=== PATIENT | female | born 1970 | race Caucasian/White ===

== ENCOUNTER 2017-01-05 18:25 | Emergency (ER) | payer BC ==
[2017-01-05 18:41] VITALS: BP 139/95; TEMP 98.4
[2017-01-05] MEDS ORDERED: DIPH,PERTUS(ACELL)TETVAC-LF 0.5 ML VIAL IM ONE (19:00)
--- NOTE | 2017-01-05 19:30 | CT ---
EXAMINATION TYPE: CT facial bones wo con DATE OF EXAM: 01/05/2017 COMPARISON: NONE HISTORY: Injury to chin with laceration. CT DLP: 828.00 mGycm Automated exposure control for dose reduction was used. TECHNIQUE: CT scan of the sinuses is performed without contrast, axial images are obtained, coronal r eformatted images are also reviewed. FINDINGS: The paranasal sinuses including the frontal, ethmoid, sphenoid, and maxillary sinuses bila terally are well-aerated without abnormal opacification. The ostiomeatal complex is patent bilateral ly on the coronal images. Visualized portion of mastoid air cells show minimal mucosal change in the maxillary sinuses, virgil bullosa is present on the right. The globes are intact bilaterally. Soft tissue swelling noted at t he level of the patient's symptomatology. No underlying fracture. No radiopaque foreign body. IMPRESSION: The sinuses are clear and the ostiomeatal complex is patent bilaterally. No fracture or d islocation.
--- NOTE | 2017-01-05 20:06 | ED ---
Head Injury HPI - General Chief complaint: Head Injury Stated complaint: FACIAL INJURY Time Seen by Provider: 01/05/17 18:52 Source: patient Mode of arrival: ambulatory Limitations: no limitations - History of Present Illness Initial comments: Patient is a 46-year-old female presenting to the emergency department with complaints of laceration to her chin. Onset of injury approximately one hour prior to arrival. Patient states that she was walking a dog when the dog took off and pulled her causing her to hit her face on the back of a pickup truck. Patient states that she chipped her front tooth, had a nosebleed, and suffered a laceration to her chin. Patient denies loss of consciousness. Patient denies recent illness, chills, fevers, nausea, vomiting , shortness of breath, chest pain, or abdominal pain. Patient denies numbness or tingling. Patient is not up-to-date on her tetanus immunization. Patient currently rates pain to her chin 2 out of 10. Patient denies. Patient denies any other sites of pain. MD Complaint: head injury Onset/Timin -: hour(s) - Related Data Home Medications Medication Instructions Recorded Confirmed Hydrochlorothiazide [Hydrodiuril] 12.5 mg PO DAILY 01/05/17 01/05/17 Losartan Potassium 100 mg PO 01/05/17 Ranitidine HCl 150 mg PO HS 01/05/17 01/05/17 Previous Rx's Medication Instructions Recorded Cephalexin [Keflex] 500 mg PO Q6HR #28 cap 01/05/17 Allergies/Adverse reactions: Allergies Allergy/AdvReac Type Severity Reaction Status Date / Time Sulfa (Sulfonamide Allergy Rash/Hives Verified 01/05/17 18:41 Antibiotics) Review of Systems ROS Statement: Those systems with pertinent positive or pertinent negative responses have been documented in the HPI. ROS Other: All systems not noted in ROS Statement are negative. Past Medical History Past Medical History: Hypertension History of Any Multi-Drug Resistant Organisms: MRSA Date of last positivie culture/infection: abdomen MDRO Source:: 2013 Past Surgical History: Orthopedic Surgery Additional Past Surgical History / Comment(s): bilateral leg, right elbow Past Psychological History: No Psychological Hx Reported Smoking Status: Never smoker Past Alcohol Use History: Occasional Past Drug Use History: None Reported General Exam Limitations: no limitations General appearance: alert, in no apparent distress Head exam: Present: atraumatic, normocephalic, normal inspection Expanded Head exam: Present: laceration (3 cm laceration to chin). Absent: raccoon eyes , ivy's sign, general tenderness, CSF rhinorrhea, CSF otorrhea Eye exam: Present: normal appearance, PERRL. Absent: scleral icterus, conjunctival injection, periorbital swelling, periorbital tenderness ENT exam: Present: normal oropharynx, mucous membranes moist, TM's normal bilaterally, normal external ear exam Expanded Teeth exam: Present: fractured tooth # (7. Patient has small chip missing from her tooth) Throat exam: normal inspection. negative: tonsillar erythema, tonsillomegaly, tonsillar exudate, R peritonsillar mass, L peritonsillar mass Neck exam: Present: normal inspection, full ROM. Absent: tenderness, lymphadenopathy Respiratory exam: Present: normal lung sounds bilaterally. Absent: respiratory distress, wheezes, rales, rhonchi, stridor Cardiovascular Exam: Present: tachycardia, normal heart sounds. Absent: systolic murmur GI/Abdominal exam: Present: soft, normal bowel sounds. Absent: distended, tenderness Extremities exam: Present: normal inspection, full ROM, normal capillary refill. Absent: tenderness Back exam: Present: normal inspection, full ROM. Absent: tenderness, rash noted Neurological exam: Present: alert, oriented X3, CN II-XII intact, normal gait, motor sensory deficit, reflexes normal Psychiatric exam: Present: normal affect, normal mood Skin exam: Present: warm, dry, normal color Expanded Type of lesion: Present: laceration (3 mm laceration to chin) Course Vital Signs 01/05/17 01/05/17 18:37 20:31 Temperature 98.4 F Pulse Rate 114 H 80 Respiratory 18 20 Rate Blood Pressure 139/95 O2 Sat by Pulse 100 Oximetry Procedures - Laceration Laceration #1 Consent Obtained: verbal consent Indication: laceration Site: other (chin) Size (cm): 3 Description: irregular Depth: simple, single layer Anesthetic Used: lidocaine 1% Anesthesia Technique: local infiltration Amount (mls): 2 Pre-repair: wound explored, irrigated extensively, deep structures intact Type of Sutures: nylon Size of Sutures: 6-0 Number of Sutures: 5 Technique: simple, interrupted Medical Decision Making - Medical Decision Making Laceration to chin. Nose contusion without evidence of fracture. Chipped tooth. Laceration repair. Patient tolerated well. Discharge instructions and return parameters reviewed. - Radiology Data Radiology results: report reviewed CT facial bones: Sinuses are clear and the ostiomeatal complexes patent bilaterally. No fracture or dislocation. Disposition Clinical Impression: Chipped tooth, Laceration of chin without complication, Contusion of nose Disposition: HOME SELF-CARE Condition: Good Instructions: Care For Your Stitches (ED), Facial Laceration (ED) Additional Instructions: Please return to the emergency room in 5 days to have sutures removed. Please watch for any signs of infection which may include increased pain, swelling, redness, fever or chills. Please return to emergency room if any signs of infection do occur. Please use clean soap and water over the area to prevent scabbing over your stitches. Please leave wound covered for the first 24 hours and then leave wound open to air. Please return to the emergency room for any other concerns. Prescriptions: Cephalexin [Keflex] 500 mg PO Q6HR #28 cap Referrals: Clif Blair MD [Primary Care Provider] - 1-2 days Time of Disposition: 20:03
[2017-01-05 20:32] VITALS: PULSE 80; RESP 20
== END 2017-01-05 20:32 | disposition home or self-care (01) ==
LOC: EC 18:25
DX: S02.5XXA Fracture of tooth (traumatic), initial encounter for closed fracture (principal); S01.81XA Laceration without foreign body of other part of head, initial encounter; S00.33XA Contusion of nose, initial encounter; I10 Essential (primary) hypertension; Z23 Encounter for immunization; Z79.899 Other long term (current) drug therapy; Z88.2 Allergy status to sulfonamides; W55.89XA Other contact with other mammals, initial encounter; W22.09XA Striking against other stationary object, initial encounter; Y93.K1 Activity, walking an animal
CPT/HCPCS: 12013; 70486; 90471; 90715; 99283